=== PATIENT | male | born 1995 | race Caucasian/White ===

== ENCOUNTER 2021-03-28 17:33 | Emergency (ER) | payer OTHER, SELFPAY ==
--- NOTE | ~2021-03-28 | XR_ITS ---
EXAMINATION: XR FOREARM, RIGHT CLINICAL INFORMATION: Laceration COMPARISON: None TECHNIQUE: AP and lateral views of the right forearm were obtained. FINDINGS: The bones and soft tissues are normal. No fracture. Imaged portions of the elbow and wrist are unremarkable. No radiopaque foreign body is seen. XR/XR forearm RT 2V IMPRESSION: Normal right forearm.
[2021-03-28 17:41] VITALS: BP 126/78; PULSE 66; RESP 16; TEMP 36.6; O2SAT 99; BMI 29.9
[2021-03-28 17:47] VITALS: BP 120/80; PULSE 74; O2SAT 98
--- NOTE | 2021-03-28 17:58 | ED_ITS ---
HPI - Wound/Laceration General Chief Complaint: Wound/Laceration Stated Complaint: LAC TO RT FOREARM Time Seen by Provider: 03/28/21 17:37 Source: patient and EMS Mode of arrival: EMS Limitations: no limitations History of Present Illness HPI narrative: 25-year-old male presents via EMS for laceration to the right forearm. He cut his arm on a wooden box while at work. He does not report any other symptoms. Tdap updated less than 1 year ago. Patient has no other complaints. Onset (ago): hour(s) (Within the hour of arrival) Extremity Location: right: forearm Place: work Patient tetanus UTD: Yes Context: accidental Associated symptoms: pain Treatments prior to arrival: bandage Related Data Previous Rx's Medication Instructions Recorded famotidine 20 mg tablet 20 mg PO BID 30 Days #60 tab 01/03/21 sucralfate 100 mg/mL oral 10 ml PO TID 30 Days #900 ml 01/03/21 suspension escitalopram oxalate 10 mg tablet 10 mg PO DAILY #30 tab 01/25/21 Allergies Allergy/AdvReac Type Severity Reaction Status Date / Time No Known Allergies Allergy Verified 03/28/21 17:40 Review of Systems Review of Systems: Constitutional: No Fever, No Chills ENT/Mouth: No Ear Pain, No Hoarseness, No sore throat Eyes: No Eye Pain, No Swelling, No Redness, No Foreign Body Cardiovascular: No Chest Pain, No SOB Respiratory: No Cough, No Dyspnea Gastrointestinal: No Nausea, No Vomiting, No Diarrhea, No abdominal Pain Genitourinary: No Dysuria, No Hematuria Musculoskeletal: positive right forearm pain, No Myalgias, No Joint Swelling Skin: Positive right forearm laceration, No rash Neuro: No Weakness, No Numbness, No Paresthesias, No Loss of Consciousness, No Dizziness, No Headache Psych: No Anxiety/Panic, No Depression Heme/Lymph: no easy bruising, no Lymphadenopathy Endocrine: No Polyuria, No Polydipsia Yes all other systems are reviewed and are negative [facility] Past Medical History Attestation statement: The following information was validated with the patient. Source: old records reviewed Medical History Asthma Depression with anxiety Gastritis Physical exam Family History Family History Mother Fibromyalgia Problem of nervous system Father No problems noted. Social History Social History Alcohol intake: never Smoking Status: Current every day smoker Cigarettes Per Day: 4 Advance Directives: No Advance Directives Information Provided: Yes Physical Exam Vital Signs: Vital Signs: Last Vital Signs Temp 97.8 F 03/28/21 17:41 Pulse 66 03/28/21 17:41 Resp 16 03/28/21 17:41 BP 126/78 03/28/21 17:41 Pulse Ox 99 03/28/21 17:41 Body Mass Index 29.9 Appearance: Alert. Oriented X3. No acute distress. Eyes: Pupils equal, round and reactive to light. ENT: Pharynx normal. Neck: Normal inspection. Neck supple. CVS: Normal heart rate and rhythm. Pulses normal. Respiratory: No respiratory distress. Breath sounds normal. Abdomen: Soft and nontender. Skin: 5 cm laceration to the right volar forearm, Skin warm and dry. Normal skin color. Normal skin turgor. Extremities: No lower extremity edema. Full range of motion to all extremities, strength 5/5, no indication of tendon injury. Neuro: No motor deficit. No sensory deficit. Course Course Course Narrative: 25-year-old male presents with a laceration to the right forearm. Stated that he cut it on a wooden box while working. Recent Tdap vaccine [place] less than 1 year ago. Patient has full range of motion, no indication of tendon injury. Plan of care is for laceration repair. Prepped and draped in sterile fashion. Patient tolerated procedure well. Please follow with procedure note for full details. Patient continues to have full range of motion, brisk cap, pulses to upper extremities. Patient does understand that he must follow up in 10 days to have sutures removed. Patient verbalized understanding of and agrees to plan of care discharge home. Procedures Laceration Laceration 1: Site: upper extremity Side (If applicable): right Size (cm): 5 Description: linear Depth: simple, single layer Local Anesthetic: lidocaine 2% Amount of anesthesia used (mL): 6 Pre-repair: wound explored, irrigated extensively and deep structures intact Skin layer closed with: nylon Size (cm): 5-0 Number of sutures: 8 Technique: simple, interrupted MDM - Wound/Laceration Differential Diagnosis Differential diagnosis: Likely laceration Medical Records Attestation: I reviewed the patient's medical records. Lab Data Attestation: I reviewed the patient's lab results. Imaging Data Right forearm x-ray: Attestation: I personally reviewed and interpreted this imaging study as follows: Radiologist's impression: EXAMINATION: XR FOREARM, RIGHT CLINICAL INFORMATION: Laceration COMPARISON: None TECHNIQUE: AP and lateral views of the right forearm were obtained. FINDINGS: The bones and soft tissues are normal. No fracture. Imaged portions of the elbow and wrist are unremarkable. No radiopaque foreign body is seen. XR/XR forearm RT 2V IMPRESSION: Normal right forearm. Discharge Plan Discharge Clinical Impression: Laceration Patient Disposition: Home, Self-Care Instructions: Care For Your Stitches (ED), Laceration (ED) Additional Instructions: Please follow-up with [facility] for further care, as this is a work related injury. Please return in 10 days to have sutures removed. If you notice any purulent drainage, swelling, redness, or pain that is out of proportion to the injury please return to the emergency department for evaluation as this could be signs and symptoms of infection. You are up-to-date on your Tdap, you reported that you received it approximately 1 year ago. Thank you for choosing this emergency department for evaluation. Please follow-up with primary care physician as needed. Return to the emergency department for any new, concerning, or worsening symptoms. Prescriptions: No Action escitalopram oxalate 10 mg tablet 10 mg PO DAILY Qty: 30 RF: 0 sucralfate 100 mg/mL suspension 10 ml PO TID 30 Days Qty: 900 RF: 0 famotidine 20 mg tablet 20 mg PO BID 30 Days Qty: 60 RF: 0 Referrals: [facility] [Provider Group] - 2 days (Laceration repair) Stand Alone Forms: Work/School Release Interventions: ED Discharge Assessment Last Done: 03/28/21 18:55 Discharge Date/Time: 03/28/21 18:57
[2021-03-28] MEDS: Lidocaine HCl 2 % MPF 5 ML VIAL 10 ML SUBCUT (18:05)
== END 2021-03-28 18:57 | disposition home or self-care (01) ==
PROVIDERS: Emergency Provider Internal Medicine
DX: S51.811A Laceration without foreign body of right forearm, initial encounter (principal); M79.631 Pain in right forearm; W26.9XXA Contact with unspecified sharp object(s), initial encounter; Y93.9 Activity, unspecified; Y92.9 Unspecified place or not applicable; Y99.0 Civilian activity done for income or pay; Z79.899 Other long term (current) drug therapy; F17.210 Nicotine dependence, cigarettes, uncomplicated; Z71.6 Tobacco abuse counseling
CPT/HCPCS: 12002; 73090; 99283

== ENCOUNTER → 2021-04-01 11:11 | Outpatient (BNVA) | payer OTHER, SELFPAY | PROVIDERS: Visit Provider Internal Medicine | DX: S61.511A Laceration without foreign body of right wrist, initial encounter (principal); W26.9XXA Contact with unspecified sharp object(s), initial encounter | CPT/HCPCS: 99202 ==

== ENCOUNTER → 2021-04-04 13:07 | Outpatient (BNVA) | payer OTHER, SELFPAY | PROVIDERS: Visit Provider Internal Medicine | DX: S61.511A Laceration without foreign body of right wrist, initial encounter (principal); L03.113 Cellulitis of right upper limb; X58.XXXA Exposure to other specified factors, initial encounter | CPT/HCPCS: 99212; 99213 ==

== ENCOUNTER → 2021-04-09 13:59 | Outpatient (BNVA) | payer OTHER, SELFPAY | PROVIDERS: Visit Provider Internal Medicine | DX: S61.511A Laceration without foreign body of right wrist, initial encounter (principal); X58.XXXA Exposure to other specified factors, initial encounter | CPT/HCPCS: 99213 ==

== ENCOUNTER 2021-04-29 19:05 | Emergency (ER) | payer OTHER, SELFPAY ==
[2021-04-29 19:36] VITALS: BP 133/86; PULSE 88; RESP 18; TEMP 36.9; O2SAT 97; BMI 29.2
[2021-04-29 19:41] VITALS: RESP 18; O2SAT 97
[2021-04-29 21:25] LABS: IDNOW Serial# 08D9AD1C; Strep A Nucleic Acid Negative (Negative)
--- NOTE | 2021-04-29 21:32 | ED_ITS ---
HPI - URI/Sore Throat General Chief Complaint: Upper Respiratory Symptoms Stated Complaint: headache Time Seen by Provider: 04/29/21 21:02 Source: patient Mode of arrival: ambulatory Limitations: no limitations History of Present Illness HPI Narrative: Patient presents to ED for headache, runny nose, stuffy nose, and sore throat. Patient states symptoms started yesterday. Patient denies any fever, or coughing. Patient denies any chest pain or shortness of breath. Patient unknown of any recent COVID exposure. MD elicited complaint: sore throat, rhinorrhea and nasal congestion Related Data Previous Rx's Medication Instructions Recorded famotidine 20 mg tablet 20 mg PO BID 30 Days #60 tab 01/03/21 sucralfate 100 mg/mL oral 10 ml PO TID 30 Days #900 ml 01/03/21 suspension escitalopram oxalate 10 mg tablet 10 mg PO DAILY #30 tab 01/25/21 naproxen 500 mg PO BID PRN #20 tab 04/29/21 Allergies Allergy/AdvReac Type Severity Reaction Status Date / Time No Known Allergies Allergy Verified 03/28/21 17:40 Review of Systems Review of Systems: Yes all other systems are reviewed and are negative Constitutional: Constitutional: Reports as per HPI, Reports no additional constitutional complaints and Reports headache(s) Eyes: Eyes: Reports as per HPI and Reports no additional eye complaints ENT: Reports system reviewed and no additional complaints, except as documented, Reports as per HPI, Reports headache(s), Reports nasal congestion and Reports sore throat Cardiovascular: Cardiovascular: Reports as per HPI, Reports no additional cardiovascular complaints, Denies chest pain, Denies dyspnea and Denies dyspnea on exertion Respiratory: Respiratory: Reports as per HPI, Reports no additional respiratory complaints, Denies chest congestion, Denies cough, Denies pain on inspiration, Denies pain with cough, Denies dyspnea and Denies dyspnea on exertion Gastrointestinal: Gastrointestinal: Reports as per HPI and Reports no additional gastrointestinal complaints Genitourinary: Genitourinary: Reports no additional male genitourinary complaints and Reports as per HPI Musculoskeletal: Musculoskeletal: Reports no additional musculoskeletal complaints and Reports as per HPI Neurologic: Reports system reviewed and no additional complaints, except as documented, Reports as per HPI and Reports headache(s) Psychiatric: Psychiatric: Reports no additional psychiatric complaints and Reports as per HPI [facility] Past Medical History Medical History Asthma Depression with anxiety Gastritis Physical exam Family History Family History Mother Fibromyalgia Problem of nervous system Father No problems noted. Social History Social History Alcohol intake: never Patient Tobacco Use Status: Current everyday Tobacco user Cigarettes Per Day: 4 Use of substances other than those prescribed or required for medical reasons: No Advance Directives: No Advance Directives Information Provided: No Physical Exam Vital Signs: Vital Signs: Last Vital Signs Temp 98.4 F 04/29/21 19:36 Pulse 88 04/29/21 19:36 Resp 18 04/29/21 19:41 BP 133/86 04/29/21 19:36 Pulse Ox 97 04/29/21 19:41 Body Mass Index 29.2 Const: General: cooperative, healthy appearing, comfortable, no acute distress, well developed, alert and awake Orientation/consciousness: patient oriented x3 HENMT: Other: Positive for clear mucus in nares. Negative for any sinus tenderness. Head: Yes normal to inspection, Yes No palpable skull fracture present, Yes normocephalic and Yes atraumatic Ears: hearing grossly normal bilaterally, external ears normal, TM's normal bilaterally and TM normal on the right General nose exam: Normal external nose present, nares abnormal, abnormal septum, nasal discharge present, normal external nose, normal mucous membranes and turbinates, no nasal discharge noted, no epistaxis, no foreign body in nares and no nasal polyps Throat: Yes posterior oropharynx normal, Yes tonsils normal and Yes uvula midline Eyes: General: appearance normal, both eyes and all related structures Neck: Neck: Yes normal visual inspection, Yes full ROM, Yes no lymphadenopathy, Yes no meningeal signs, Yes trachea midline, Yes supple and No tender Chest: Chest palpation & inspection: normal inspection of the chest and normal palpation of entire chest wall Resp: Effort & Inspection: normal respiratory effort and able to speak in complete sentences Cardio: Jugular venous distension: no JVD Heart sounds: S1 normal heart sound present and S2 normal heart sound present GI: Inspection: Yes normal to inspection and No abdominal wall ecchymosis Palpation (GI): Soft to palpation, not firm, nontender, no guarding and not rigid : General: No CVA tenderness and Yes no CVA tenderness Back/Spine/Pelvis: Back: no CVA tenderness, No CVA tenderness and No back tenderness Skin: General skin exam: no rashes or lesions noted and elasticity normal Neuro: General: patient oriented x3, gait normal, no meningeal signs and CN's II-XI intact bilaterally Cranial nerves: Yes CN's II-XII intact bilaterally Extrem: General: Yes normal to inspection and Yes full ROM Psych: Appearance: grossly normal, well kempt and not disheveled Course Course Course Narrative: Patient will have COVID swab and strep swab. Reevaluation(s) Reevaluation #1: COVID and strep swab were negative. Viral syndrome. Patient is not having any sinus tenderness to indicate sinusitis. Patient informed he might be a false negative due to him having symptoms for 2 days. Patient informed to self quarantine if symptoms worsen or get retested 72 hours MDM - URI/Sore Throat MDM Narrative Medical decision making narrative: Viral syndrome Lab Data Labs: Lab Results 04/29/21 04/29/21 Range/Units 21:05 21:05 COVID-19 (JAKOB) Negative (Negative) COVID-19 Clin Com See Note S. pyogenes GrpA MARQUISE Negative (Negative) Discharge Plan Discharge Clinical Impression: Acute viral syndrome Patient Disposition: Home, Self-Care Instructions: Viral Syndrome (ED) Additional Instructions: Return to ED for worsening headache, chest pain, shortness of breath, neck stiffness, intractable fever, chills, weakness, dizziness, or any other concerning symptoms. Your COVID swab came back negative. If Symptoms worsen recommend retesting in 72 hours or self-quarantine. Strep swab came back negative Prescriptions: New naproxen 500 mg tablet 500 mg PO BID PRN (Reason: pain) Qty: 20 RF: 0 No Action escitalopram oxalate 10 mg tablet 10 mg PO DAILY Qty: 30 RF: 0 sucralfate 100 mg/mL suspension 10 ml PO TID 30 Days Qty: 900 RF: 0 famotidine 20 mg tablet 20 mg PO BID 30 Days Qty: 60 RF: 0 Stand Alone Forms: Work/School Release Interventions: ED Discharge Assessment Last Done: 04/29/21 22:12 Discharge Date/Time: 04/29/21 22:19 Print Language: Tamazight
[2021-04-29 21:37] LABS: COVID-19 Test Negative (Negative); IDNOW Serial# 9DD0AD1C
== END 2021-04-29 22:19 | disposition home or self-care (01) ==
PROVIDERS: Emergency Provider Internal Medicine
DX: B34.9 Viral infection, unspecified (principal); R51.9 Headache, unspecified; F17.200 Nicotine dependence, unspecified, uncomplicated; Z79.899 Other long term (current) drug therapy; Z71.6 Tobacco abuse counseling; Z20.822 Contact with and (suspected) exposure to COVID-19
CPT/HCPCS: 36415; 87635; 87651; 99284

== ENCOUNTER 2023-05-12 10:42 | Outpatient (REF) | payer OTHER, SELFPAY ==
[2023-05-12 13:48] LABS: CT PCR NOT DETECTED (Not Detect.); NG PCR NOT DETECTED (Not Detect.)
[2023-05-13 04:10] LABS: Syphilis Screen Nonreactive (Nonreactive)
[2023-05-13 04:48] LABS: HBS Num1 > 1000.00 mIU/mL (0-7.99); HBc Num1 0.08 S/CO (0.00-0.79); HBsAGNum1 0.35 S/CO (0.00-0.99); HIV AB/AG Nonreactive (Nonreactive); HIV Num 1 0.06 S/CO (0.00-0.99); Hepatitis A Antibody IgM 0.29 Index (0-0.79); Hepatitis B Core Antibody Nonreactive (Nonreactive); Hepatitis B Surface Antigen Negative (Negative); ~HepC Num1 0.11 S/CO (0.00-0.79); ~Hepatitis A Antibody IgM Nonreactive (Nonreactive); ~Hepatitis B Surface Antibody REACTIVE (Nonreactive); ~Hepatitis C Antibody Nonreactive (Nonreactive)
== END 2023-05-12 10:43 | disposition home or self-care (01) ==
LOC: HO.LAB 10:42
PROVIDERS: PCP Internal Medicine; Visit Provider Internal Medicine
DX: Z11.3 Encounter for screening for infections with a predominantly sexual mode of transmission (principal)
CPT/HCPCS: 0353U; 36415; 86704; 86706; 86709; 86780; 86803; 87340; 87389